=== PATIENT | male | born 1960 | race Caucasian/White ===

== ENCOUNTER 2022-05-27 23:45 | Outpatient (CLI) | payer BC, SELFPAY | END 2022-05-27 23:46 | disposition home or self-care (01) | LOC: AMB 06-04 19:40 | PROVIDERS: Visit Provider Emergency Medicine Emergency Medical Services | DX: R53.1 Weakness (principal); I49.9 Cardiac arrhythmia, unspecified; R42 Dizziness and giddiness; Z20.822 Contact with and (suspected) exposure to COVID-19 | CPT/HCPCS: A0425; A0427 ==

== ENCOUNTER 2022-05-28 00:20 | Emergency (ER) | payer BC, SELFPAY ==
[2022-05-28] VITALS (22 sets, daily range): BP systolic 46–138; BP diastolic 27–102; PULSE 0–133; RESP 0–22; TEMP 36.1; O2SAT 91–97
[2022-05-28] MEDS: 0.9 % SODIUM CHLORIDE 1000 ml 1,000 ML IV (00:35)
--- NOTE | 2022-05-28 00:35 | ED.GENADULT ---
HPI - General Adult General Stated complaint: Heart Problem, Cov+ Time Seen by Provider: 05/28/22 00:33 History of Present Illness HPI narrative: This 61-year-old male comes in by ambulance because generalized malaise, lightheadedness, and near-syncope that occurred is prior to arrival. He does have a cardiac history and has a defibrillator. He has had ventricular tachycardia in the past. He states that his defibrillator did not discharge. He states that he was out for his normal walk in the evening. He walks a mi every day and tolerated this well. After coming in he felt generalized malaise with diaphoresis. He laid for a couple hours hoping to feel better. His called the ambulance who arrived and noted an initial blood pressure with a systolic value at 65. He did receive 500 mL of normal saline EN route here and his blood pressure is improved to a systolic value of 95 on arrival. The patient denies ever having any chest pain. He states that this kind of thing happen once before where he received IV fluids and was observed overnight and sent home as he improved. He does state that he feels behind on fluids. He received 325 mg of aspirin and route here. He states that he took his medicines today which include amiodarone, propranolol, lisinopril, and other medications. He is positive for COVID with a positive test result about a week ago. Related Data Allergies Allergy/AdvReac Type Severity Reaction Status Date / Time No Known Drug Allergies Allergy Verified 05/28/22 00:52 Review of Systems Status of ROS: Reports: 10 or more systems reviewed and unremarkable except as noted in History and below Narrative: Constitutional: No fevers, no weight gain or loss. Eyes: No discharge. No vision changes. HENT: No congestion, no sore throat, no ear pain. Cardiovascular: No chest pain, no palpitations. Tachycardia. Diaphoresis. Respiratory: No shortness of breath, no wheezes, no cough. Gastrointestinal: No abdominal pain, no vomiting, no diarrhea. Genitourinary: No dysuria, no hematuria. Musculoskeletal: Normal range of motion. Skin: No rashes, no pruritis. Neurological: No weakness, sensory change, speech change. Lightheadedness prior to arrival here. Endo/Heme/Allergies: No bruising or bleeding. No polydipsia. Pysch: no suicidality, no anxiety, no insomnia. All other systems reviewed and are negative. [facility] Medical History (Updated 05/28/22 @ 01:50 by Roscoe Hatch MD) Adenomatous colon polyp Cyst of kidney, acquired Essential (primary) hypertension Mass in neck Nonischemic cardiomyopathy Pre-syncope Presence of automatic (implantable) cardiac defibrillator Syncope and collapse Ventricular tachycardia (paroxysmal) Exam Narrative: Exam Narrative: Constitutional: Well-developed, well-nourished, no acute distress. HEENT: Normocephalic, atraumatic. Neck: Normal range of motion. Nontender. Supple. Heart: Regular. No murmurs. Tachycardia, rate around 125 beats per minute. Intact distal pulses. Lungs: Clear to auscultation. No chest discomfort. No wheezes, rhonchi, or rales. Abdomen: Normal bowel sounds. Nontender. No rebound tenderness. Genitalia: Deferred. Back: No midline tenderness. Normal range of motion. Extremities: Normal range of motion. No injury. No pedal edema. Skin: Intact. No rash. Warm. No erythema or pallor. Neurologic: No altered sensation. No weakness. Alert and oriented. Psychiatric: No suicidality. No anxiety or depression. No insomnia. Nursing notes and vitals signs are reviewed. Const: Vital Signs, click to edit/add: Vital Signs - 24 hr 05/28/22 00:22 Temperature 97.0 F L Pulse Rate [Left P ulse Oximeter] 124 H Respiratory Rate 20 Blood Pressure [Le ft Upper Arm] 93/83 Pulse Oximetry 95 Oxygen Delivery Me thod Room Air Course Vital Signs Vital signs: Initial Vital Signs Temperature 97.0 F L 05/28/22 00:22 Temperature Source Temporal Artery Scan 05/28/22 00:22 Pulse Rate 124 H 05/28/22 00:22 Pulse Rhythm 05/28/22 00:22 Respiratory Rate 20 05/28/22 00:22 Blood Pressure 93/83 05/28/22 00:22 Blood Pressure Mean 86 05/28/22 00:22 Blood Pressure Position Semi-Fowlers 05/28/22 00:22 Pulse Oximetry 95 05/28/22 00:22 Oxygen Delivery Method 05/28/22 00:22 Vital Signs Temperature 97.0 F L 05/28/22 00:22 Pulse Rate 124 H 05/28/22 00:22 Respiratory Rate 20 05/28/22 00:22 Blood Pressure 93/83 05/28/22 00:22 Pulse Oximetry 95 05/28/22 00:22 Oxygen Delivery Method 05/28/22 00:22 Temperature 97.0 F L 05/28/22 00:22 Pulse Rate 124 H 05/28/22 00:22 Respiratory Rate 20 05/28/22 00:22 Blood Pressure 93/83 05/28/22 00:22 Pulse Oximetry 95 05/28/22 00:22 Oxygen Delivery Method 05/28/22 00:22 Medical Decision Making MDM Narrative Medical decision making narrative: This patient comes in with diaphoresis and some lightheadedness. He arrives with wide complex tachycardia and a rate of 125 beats per minute. This was initially a stable tachycardia. His blood pressures however are low. He did receive a L of normal saline after arrival here in addition to half a L given by ambulance. His pressures improved at 104 systolic but soon after this he became diaphoretic and blood pressure dropped to around 50. This was during a time when I was getting ready to arrange for synchronized cardioversion. He went unconscious when a nurse was in the room so a code blue was called. Chest compressions were started immediately. He had pads in place and rather quickly we were able to analyze the rhythm and he received defibrillation at 120 joules. Within less than a minute after this he resumed normal consciousness. His heart rate improved to normal sinus rhythm which is paced at 88 beats per minute. His blood pressure improved to a systolic value of 138. His troponin returns at 0. Other lab results also returned with reassuring findings. His calcium is a bit low. I spoke with manager nc on-call at [facility] in [place], Dr. Montes, agrees to his transfer there to the cardiac ICU. He stated that there was no need to administer any further medications at this time. Lab Data Labs: Lab Results 05/28/22 05/28/22 05/28/22 Range/Units 00:35 00:35 00:35 WBC 6.55 (4.50-11.00) K/uL RBC 3.97 L (4.30-5.90) m/uL Hgb 12.7 L (13.5-17.5) gm/dL Hct 37.5 (37.0-53.0) % MCV 95 (80-100) fL MCH 32 (26-34) pg MCHC 34 (32-36) gm/dL RDW Coeff of Linda 12.3 (11.5-15.5) % Plt Count 261 (140-440) K/uL Neut % (Auto) 62.3 (42.0-72.0) % Lymph % (Auto) 21.2 (20-44) % [place] % (Auto) 10.4 (0.0-11.0) % Eos % (Auto) 5.3 (0.0-7.0) % Baso % (Auto) 0.3 (0.0-3.0) % Neut # (Auto) 4.08 (1.7-7.0) K/uL Lymph # (Auto) 1.39 (0.90-2.90) K/uL [place] # (Auto) 0.70 (0.00-0.90) K/UL Eos # (Auto) 0.35 (0.00-0.50) K/uL Baso # (Auto) 0.02 (0.00-0.30) K/uL Abs Immat Gran (auto) 0.03 (0.00-0.30) K/uL INR 1.04 (0.91-1.10) Sodium 137 (135-149) mmol/L Potassium 4.7 (3.6-5.1) mmol/L Chloride 111 (96-114) mmol/L Carbon Dioxide 22 (20-32) mmol/L BUN 18 (7-30) mg/dL Creatinine 1.1 (0.5-1.5) mg/dL Estimated GFR 76 ml/min Glucose 128 H (60-115) mg/dL Calcium 6.9 L (8.4-10.6) mg/dL Magnesium 1.7 (1.5-2.6) mg/dL Troponin I < 0.01 L (0.01-0.04) ng/mL POC Troponin I (0.01-0.04) ng/ml 05/28/22 Range/Units 00:35 WBC (4.50-11.00) K/uL RBC (4.30-5.90) m/uL Hgb (13.5-17.5) gm/dL Hct (37.0-53.0) % MCV (80-100) fL MCH (26-34) pg MCHC (32-36) gm/dL RDW Coeff of Linda (11.5-15.5) % Plt Count (140-440) K/uL Neut % (Auto) (42.0-72.0) % Lymph % (Auto) (20-44) % [place] % (Auto) (0.0-11.0) % Eos % (Auto) (0.0-7.0) % Baso % (Auto) (0.0-3.0) % Neut # (Auto) (1.7-7.0) K/uL Lymph # (Auto) (0.90-2.90) K/uL [place] # (Auto) (0.00-0.90) K/UL Eos # (Auto) (0.00-0.50) K/uL Baso # (Auto) (0.00-0.30) K/uL Abs Immat Gran (auto) (0.00-0.30) K/uL INR (0.91-1.10) Sodium (135-149) mmol/L Potassium (3.6-5.1) mmol/L Chloride (96-114) mmol/L Carbon Dioxide (20-32) mmol/L BUN (7-30) mg/dL Creatinine (0.5-1.5) mg/dL Estimated GFR ml/min Glucose (60-115) mg/dL Calcium (8.4-10.6) mg/dL Magnesium (1.5-2.6) mg/dL Troponin I (0.01-0.04) ng/mL POC Troponin I 0.00 L (0.01-0.04) ng/ml Imaging Data Chest x-ray: Radiologist's impression: Small lung volumes with moderate pulmonary vascular congestion noted. ECG Data Attestation: I personally reviewed and interpreted this ECG as follows: Interpretation: Wide complex tachycardia. Rate 125 beats per minute. Repeat EKG after defibrillation shows a dual paced rhythm with a rate of 88 beats per minute. There are no specific ST or T-wave abnormalities. Critical Care Time Critical Care Time Critical Care Time: Yes Attestation: The patient required my highest level preparedness to intervene emergently and I personally spent this critical care time directly and personally managing the patient. This critical care time included: Obtaining a history; Examining the patient; Pulse oximetry; Ordering and reviewing of studies; Arranging urgent treatment with development of a management plan; Evaluation of patients response to treatment; Frequent reassessment discussions with other providers. This critical care time was performed to assess and manage the high probability of imminent life-threatening deterioration that could result in multiorgan failure. It was exclusive of separate billable procedures and treating other patients and teaching time. Total Critical Care Time in Minutes: 45 Discharge Plan Discharge Clinical Impression: Cardiac arrest, Ventricular tachycardia Patient Disposition: [facility] Condition: Improved Follow Up/Referrals: Stepan Warren MD [Primary Care Provider] - Stand Alone Forms: [employer] Info Instructions
--- NOTE | 2022-05-28 00:36 | CRLHL7_ITS ---
For Patients: As a result of the Cures Act, medical imaging exams and procedure reports are released immediately into your electronic medical record. You may view this report before your referring provider. If you have questions, please contact your health care provider. INDICATION: Wide complex tachycardia TECHNIQUE: Chest radiograph 1 view on 2 films COMPARISON: 05/06/2020 FINDINGS: Mediastinum: The mediastinum is normal in appearance. The heart silhouette is normal in size and morphology. There is a left cardiac pacer present with leads in the right atrium and right ventricle. Lung: Small lung volumes with moderate pulmonary vascular congestion noted. No sign of pleural effusion seen. No pneumothorax is identified. Bone and Soft tissue: Unremarkable for age. IMPRESSION: 1. Small lung volumes with moderate pulmonary vascular congestion noted. Dictated by Krishna Starks MD @ 05/28/2022 12:50:54 AM Dictated by: Krishna Starks MD @ 05/28/2022 00:50:59 (Electronically Signed)
--- NOTE | 2022-05-28 00:41 | ED.NURSE ---
Radiology in for PCXR.
[2022-05-28 00:47] LABS: Basophils Absolute Auto 0.02 K/uL (0.00-0.30); Basophils Percent Auto 0.3 % (0.0-3.0); Eosinophils Absolute Auto 0.35 K/uL (0.00-0.50); Eosinophils Percent Auto 5.3 % (0.0-7.0); Hematocrit 37.5 % (37.0-53.0); Hemoglobin* 12.7 gm/dL (13.5-17.5); Immature Granulocytes Abs Auto 0.03 K/uL (0.00-0.30); Lymphocytes Absolute Auto 1.39 K/uL (0.90-2.90); Lymphocytes Percent Auto 21.2 % (20-44); Mean Corpuscular HGB Conc 34 gm/dL (32-36); Mean Corpuscular Hemoglobin 32 pg (26-34); Mean Corpuscular Volume 95 fL (80-100); Monocytes Percent Auto 10.4 % (0.0-11.0); Neutrophils Absolute Auto 4.08 K/uL (1.7-7.0); Neutrophils Percent Auto 62.3 % (42.0-72.0); Platelet Count* 261 K/uL (140-440); RDW Coefficient of Variation % 12.3 % (11.5-15.5); Red Blood Count 3.97 m/uL (4.30-5.90); White Blood Count* 6.55 K/uL (4.50-11.00)
[2022-05-28 00:52] LABS: Slide Review Reflex No
[2022-05-28 01:12] LABS: Chloride* 111 mmol/L (96-114); Potassium* 4.7 mmol/L (3.6-5.1); Sodium* 137 mmol/L (135-149)
[2022-05-28 01:15] LABS: Blood Urea Nitrogen* 18 mg/dL (7-30); Carbon Dioxide* 22 mmol/L (20-32); Creatinine* 1.1 mg/dL (0.5-1.5); Estimated Glomerular Filt Rate 76 ml/min; Glucose* 128 mg/dL (60-115)
[2022-05-28 01:16] LABS: Calcium* 6.9 mg/dL (8.4-10.6); Magnesium* 1.7 mg/dL (1.5-2.6)
[2022-05-28 01:17] LABS: INR 1.04 (0.91-1.10)
[2022-05-28 01:33] LABS: Troponin I* < 0.01 ng/mL (0.01-0.04)
--- NOTE | 2022-05-28 02:05 | ED.NURSE ---
Report to Angie Store Sales Consultant, who accepts transfer of patient care. Patient left department via EMS cot en route to [facility] Cardiac ICU. Attempted to call nurse report to [place], who states, they have our number and will call if there are any questions.
--- NOTE | 2022-05-28 02:18 | ED.NURSE ---
Report to Angie Transportation Technician, who accepts transfer of patient care. Patient left department via EMS cot en route to [facility] Cardiac ICU. Attempted to call nurse report to [place], who states, they have our number and will call if there are any questions.
--- NOTE | 2022-05-28 05:04 | ED.NURSE ---
0118 Blood pressure 53/35. This RN went to notify the MD, while JUAN To, at bedside to assess patient. Patient lost consciousness and Code Blue called via Code Blue Button. Code team in room within 30 seconds of Code Blue call. Patient confirmed pulseless and chest compressions started at a rate if 110 compressions per minute. ER staff begins mechanical suctioning of emesis in the airway. Patient previously placed on defib pads, which are connected to the zoll and rhythm interpreted as pulseless ventricular tachycardia. Patient defibrillated with unsynchronized shock at 120j at 0121:25. Chest compressions resumed. Airway is suctioned again during chest compressions. At 0122, patient is noted to have swallowing movements. Chest compressions stopped, central and distal pulses are intact and strong. Patient is alert and oriented to name, , and place. Monitor shows AV dual paced rhythm, rate of 70. Patient is informed of events during cardiac arrest. Patient complains of some chest discomfort following chest compressions. MD speaking to [facility] for transfer to Cardiac ICU, accepted by Dr. Montes. Patient and Dr. Sotelo speaking to on portable phone. Patient is talkative in room.
[2022-05-28 09:24] LABS: D Dimer Quantitative* 0.28 ug/ml (0.00-0.50)
--- NOTE | 2022-06-01 14:46 | ED.NURSE ---
Pt called requesting to speak with DR Rodriguez. Flat Lock Machine Operator instructed pt that Dr rodriguez was busy with a patient and was unable to take a phone call at the moment. Flat Lock Machine Operator asked if there was something that I could answer for him, he said was calling to thank dr rodriguez for his care and also had questions regarding the settings on his pace maker. Flat Lock Machine Operator instructed patient to direct pace maker setting questions and additional follow up questions to his primary care or rooter operator.
== END 2022-05-28 02:05 | disposition short-term general hospital (02) ==
PROVIDERS: Emergency Provider Emergency Medicine Emergency Medical Services
DX: I47.2 Ventricular tachycardia (principal); I46.9 Cardiac arrest, cause unspecified; Z95.810 Presence of automatic (implantable) cardiac defibrillator
CPT/HCPCS: 36415; 71045; 80048; 83735; 84484; 85025; 85379; 85610; 92950; 93005; 99285; 99291; J7030

== ENCOUNTER 2022-05-28 02:02 | Outpatient (CLI) | payer BC, SELFPAY | END 2022-05-28 02:03 | disposition home or self-care (01) | LOC: AMB 06-04 19:42 | PROVIDERS: Visit Provider Emergency Medicine Emergency Medical Services | DX: I46.9 Cardiac arrest, cause unspecified (principal); I47.2 Ventricular tachycardia; R53.81 Other malaise; R42 Dizziness and giddiness; R55 Syncope and collapse | CPT/HCPCS: A0425; A0427 ==

== ENCOUNTER 2022-08-31 14:18 | Outpatient (CLI) | payer BC, SELFPAY | END 2022-08-31 14:19 | disposition home or self-care (01) | LOC: AMB 09-23 16:13 | PROVIDERS: Visit Provider Emergency Medicine | DX: R20.0 Anesthesia of skin (principal) | CPT/HCPCS: A0998 ==

== ENCOUNTER 2022-11-02 16:21 | Outpatient (CLI) | payer BC, SELFPAY | END 2022-11-02 16:22 | disposition home or self-care (01) | LOC: AMB 11-05 22:34 | PROVIDERS: Visit Provider Student in an Organized Health Care Education/Training Program | DX: I49.9 Cardiac arrhythmia, unspecified (principal) | CPT/HCPCS: A0425; A0427 ==

== ENCOUNTER 2022-11-02 16:53 | Emergency (ER) | payer BC, SELFPAY ==
[2022-11-02] VITALS (38 sets, daily range): BP systolic 88–120; BP diastolic 59–96; PULSE 68–120; RESP 9–21; TEMP 37.2; O2SAT 97–100; BMI 23.5
--- NOTE | 2022-11-02 17:09 | CRLHL7_ITS ---
For Patients: As a result of the Cures Act, medical imaging exams and procedure reports are released immediately into your electronic medical record. You may view this report before your referring provider. If you have questions, please contact your health care provider. INDICATION: V-tach. Chest pain.. TECHNIQUE: Chest 1 view. COMPARISON: May 28, 2022. FINDINGS: Cardiovascular and mediastinum: Cardiomediastinal silhouette is borderline enlarged, similar to prior. Left chest wall AICD with leads extending to the right atrium and ventricle. Lungs and pleural spaces: Lungs are clear. No evidence of pleural effusion. No pneumothorax identified. Bones and soft tissues: Unremarkable. IMPRESSION: No acute cardiopulmonary process identified. No significant interval change. Dictated by Andrew Oviedo MD @ 11/02/2022 5:39:47 PM (Electronically Signed)
--- NOTE | 2022-11-02 17:17 | ED_ITS ---
HPI - General Adult General Time Seen by Provider: 17:18 <Jose Guadalupe Whitley MD - Last Filed: 11/03/22 10:35> Date Seen: 11/02/22 <Jose Guadalupe Whitley MD - Last Filed: 11/03/22 10:35> Chief complaint: Arrhythmia/Palpitations <Jose Guadalupe Whitley MD - Last Filed: 11/03/22 10:35> Stated complaint: Tachycardia <Jose Guadalupe Whitley MD - Last Filed: 11/03/22 10:35> Time Seen by Provider: 11/02/22 16:57 <Jose Guadalupe Whitley MD - Last Filed: 11/03/22 10:35> History of Present Illness HPI narrative: Mendez is a 62-year-old male past medical history includes defibrillator/pacemaker currently on amiodarone and mexiletine, 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 Patient states just prior to his arrival he felt some pounding in his chest, this occurred after he went for his usual walk, denies any lightheadedness or dizziness or syncopal episodes, min imal chest discomfort. No real shortness of breath. Checked his apple watch was increased to 120, he states that his pacemaker set at 70, his defibrillator is set at 120., he has had this since 2006, he had the battery changed 2 months ago. Patient denies any fevers, chills or any other illness. Patient states that he has been shocked by his defibrillator about 10 times in the past. Patient denies any pain at this time. <Jose Guadalupe Whitley MD - Last Filed: 11/03/22 10:35> Related Data Home medications: Home Medications Medication Instructions Recorded Confirmed amiodarone 200 mg tablet 400 mg PO Q12H 05/28/22 11/02/22 levothyroxine 100 mcg tablet 100 mcg PO QAM 05/28/22 11/02/22 lisinopril 5 mg tablet 40 mg PO DAILY 05/28/22 11/02/22 mexiletine 200 mg capsule mg 05/28/22 potassium chloride 20 mEq meq PO 05/28/22 tablet,extended release(part/cryst) propranolol 160 mg capsule,24 mg PO 05/28/22 hr,extended release sildenafil 25 mg tablet mg 05/28/22 spironolactone 25 mg tablet mg 05/28/22 carvedilol 6.25 mg tablet mg 11/02/22 cholecalciferol (vitamin D3) 1,250 11/02/22 mcg (50,000 unit) capsule <Jose Guadalupe Whitley MD - Last Filed: 11/03/22 10:35> Allergies/adverse reactions: Allergies Allergy/AdvReac Type Severity Reaction Status Date / Time No Known Drug Allergies Allergy Verified 05/28/22 00:52 <Jose Guadalupe Whitley MD - Last Filed: 11/03/22 10:35> Review of Systems Status of ROS: Reports: 10 or more systems reviewed and unremarkable except as noted in History and below <Jose Guadalupe Whitley MD - Last Filed: 11/03/22 10:35> [facility] Medical History: Medical History (Updated 11/02/22 @ 18:03 by Jose Guadalupe Whitley MD) Adenomatous colon polyp Cyst of kidney, acquired Essential (primary) hypertension Mass in neck Nonischemic cardiomyopathy Pre-syncope Presence of automatic (implantable) cardiac defibrillator Syncope and collapse Ventricular tachycardia (paroxysmal) <Jose Guadalupe Whitley MD - Last Filed: 11/03/22 10:35> Social History: Social History Smoking Status: Never smoker How often do you have a drink containing alcohol: monthly or less AUDIT-C Alcohol total score: 1 Non-prescribed substance use: denies use service: No <Jose Guadalupe Whitley MD - Last Filed: 11/03/22 10:35> Exam Narrative: Exam Narrative: General: No obvious distress laying comfortably HEENT: Oropharynx clear and moist, Neck: Supple full range of motion Heart: Tachycardia Lungs: Clear to auscultation bilaterally Abdomen: Soft, nontender Muscle skeletal: No lower extremity edema Neuro: Alert awake and oriented x3 <Jose Guadalupe Whitley MD - Last Filed: 11/03/22 10:35> Const: Vital Signs, click to edit/add: Vital Signs - 24 hr 11/02/22 17:02 11/02/22 17:12 11/02/22 17:13 Temperature 98.9 F Pulse Rate 119 H 119 H Pulse Rate [Pulse Oximeter] 118 H Respiratory Rate 18 Blood Pressure 115/94 H Blood Pressure [Le ft Upper Arm] 120/91 H Pulse Oximetry 98 99 99 Oxygen Delivery Me thod Room Air Oxygen Flow Rate 11/02/22 17:15 11/02/22 17:16 11/02/22 17:20 Temperature Pulse Rate 118 H 120 H 119 H Pulse Rate [Pulse Oximeter] Respiratory Rate Blood Pressure 113/96 H Blood Pressure [Le ft Upper Arm] Pulse Oximetry 100 99 99 Oxygen Delivery Me thod Oxygen Flow Rate 11/02/22 17:25 11/02/22 17:30 11/02/22 17:31 Temperature Pulse Rate 116 H 118 H 118 H Pulse Rate [Pulse Oximeter] Respiratory Rate Blood Pressure 106/85 Blood Pressure [Le ft Upper Arm] Pulse Oximetry 98 99 98 Oxygen Delivery Me thod Oxygen Flow Rate 11/02/22 17:35 11/02/22 17:40 11/02/22 17:45 Temperature Pulse Rate 118 H 118 H 120 H Pulse Rate [Pulse Oximeter] Respiratory Rate Blood Pressure Blood Pressure [Le ft Upper Arm] Pulse Oximetry 99 99 99 Oxygen Delivery Me thod Oxygen Flow Rate 11/02/22 17:46 11/02/22 17:50 11/02/22 17:55 Temperature Pulse Rate 119 H 119 H Pulse Rate [Pulse Oximeter] Respiratory Rate 12 20 Blood Pressure 111/89 Blood Pressure [Le ft Upper Arm] Pulse Oximetry 99 100 Oxygen Delivery Me thod Oxygen Flow Rate 11/02/22 18:00 11/02/22 18:01 11/02/22 18:05 Temperature Pulse Rate 120 H Pulse Rate [Pulse Oximeter] Respiratory Rate 11 L 16 15 Blood Pressure 110/94 H Blood Pressure [Le ft Upper Arm] Pulse Oximetry 100 Oxygen Delivery Me thod Oxygen Flow Rate 11/02/22 18:10 11/02/22 18:11 11/02/22 18:15 Temperature Pulse Rate 75 68 70 Pulse Rate [Pulse Oximeter] Respiratory Rate 9 L 11 L 21 Blood Pressure 106/81 Blood Pressure [Le ft Upper Arm] Pulse Oximetry 97 98 100 Oxygen Delivery Me thod Oxygen Flow Rate 11/02/22 18:19 11/02/22 18:20 11/02/22 18:21 Temperature Pulse Rate 70 70 70 Pulse Rate [Pulse Oximeter] Respiratory Rate 13 13 17 Blood Pressure 104/79 88/59 L Blood Pressure [Le ft Upper Arm] Pulse Oximetry 100 100 100 Oxygen Delivery Me thod Oxygen Flow Rate 11/02/22 18:25 11/02/22 18:26 11/02/22 18:30 Temperature Pulse Rate 70 70 70 Pulse Rate [Pulse Oximeter] Respiratory Rate 13 15 14 Blood Pressure 108/76 Blood Pressure [Le ft Upper Arm] Pulse Oximetry 100 100 100 Oxygen Delivery Me thod Oxygen Flow Rate 11/02/22 18:31 11/02/22 18:35 11/02/22 18:36 Temperature Pulse Rate 70 70 69 Pulse Rate [Pulse Oximeter] Respiratory Rate 20 13 12 Blood Pressure 112/79 97/71 Blood Pressure [Le ft Upper Arm] Pulse Oximetry 100 100 100 Oxygen Delivery Me thod Oxygen Flow Rate 11/02/22 18:40 11/02/22 18:41 11/02/22 18:58 Temperature Pulse Rate 71 70 71 Pulse Rate [Pulse Oximeter] Respiratory Rate 11 L 15 Blood Pressure 100/70 Blood Pressure [Le ft Upper Arm] Pulse Oximetry 100 100 99 Oxygen Delivery Me thod Oxygen Flow Rate 11/02/22 19:00 11/02/22 19:01 11/02/22 19:05 Temperature Pulse Rate 70 70 70 Pulse Rate [Pulse Oximeter] Respiratory Rate Blood Pressure 119/82 Blood Pressure [Le ft Upper Arm] Pulse Oximetry 100 99 100 Oxygen Delivery Me thod Oxygen Flow Rate 11/02/22 19:10 11/02/22 19:35 Temperature Pulse Rate 70 Pulse Rate [Pulse Oximeter] Respiratory Rate Blood Pressure Blood Pressure [Le ft Upper Arm] Pulse Oximetry 100 99 Oxygen Delivery Me thod Nasal Cannula Oxygen Flow Rate 4 <Jose Guadalupe Whitley MD - Last Filed: 11/03/22 10:35> Vital Signs, click to edit/add: Vital Signs - 24 hr 11/02/22 17:02 11/02/22 17:12 11/02/22 17:13 Temperature 98.9 F Pulse Rate 119 H 119 H Pulse Rate [Pulse Oximeter] 118 H Respiratory Rate 18 Blood Pressure 115/94 H Blood Pressure [Le ft Upper Arm] 120/91 H Pulse Oximetry 98 99 99 Oxygen Delivery Me thod Room Air Oxygen Flow Rate 11/02/22 17:15 11/02/22 17:16 11/02/22 17:20 Temperature Pulse Rate 118 H 120 H 119 H Pulse Rate [Pulse Oximeter] Respiratory Rate Blood Pressure 113/96 H Blood Pressure [Le ft Upper Arm] Pulse Oximetry 100 99 99 Oxygen Delivery Me thod Oxygen Flow Rate 11/02/22 17:25 11/02/22 17:30 11/02/22 17:31 Temperature Pulse Rate 116 H 118 H 118 H Pulse Rate [Pulse Oximeter] Respiratory Rate Blood Pressure 106/85 Blood Pressure [Le ft Upper Arm] Pulse Oximetry 98 99 98 Oxygen Delivery Me thod Oxygen Flow Rate 11/02/22 17:35 11/02/22 17:40 11/02/22 17:45 Temperature Pulse Rate 118 H 118 H 120 H Pulse Rate [Pulse Oximeter] Respiratory Rate Blood Pressure Blood Pressure [Le ft Upper Arm] Pulse Oximetry 99 99 99 Oxygen Delivery Me thod Oxygen Flow Rate 11/02/22 17:46 11/02/22 17:50 11/02/22 17:55 Temperature Pulse Rate 119 H 119 H Pulse Rate [Pulse Oximeter] Respiratory Rate 12 20 Blood Pressure 111/89 Blood Pressure [Le ft Upper Arm] Pulse Oximetry 99 100 Oxygen Delivery Me thod Oxygen Flow Rate 11/02/22 18:00 11/02/22 18:01 11/02/22 18:05 Temperature Pulse Rate 120 H Pulse Rate [Pulse Oximeter] Respiratory Rate 11 L 16 15 Blood Pressure 110/94 H Blood Pressure [Le ft Upper Arm] Pulse Oximetry 100 Oxygen Delivery Me thod Oxygen Flow Rate 11/02/22 18:10 11/02/22 18:11 11/02/22 18:15 Temperature Pulse Rate 75 68 70 Pulse Rate [Pulse Oximeter] Respiratory Rate 9 L 11 L 21 Blood Pressure 106/81 Blood Pressure [Le ft Upper Arm] Pulse Oximetry 97 98 100 Oxygen Delivery Me thod Oxygen Flow Rate 11/02/22 18:19 11/02/22 18:20 11/02/22 18:21 Temperature Pulse Rate 70 70 70 Pulse Rate [Pulse Oximeter] Respiratory Rate 13 13 17 Blood Pressure 104/79 88/59 L Blood Pressure [Le ft Upper Arm] Pulse Oximetry 100 100 100 Oxygen Delivery Me thod Oxygen Flow Rate 11/02/22 18:25 11/02/22 18:26 11/02/22 18:30 Temperature Pulse Rate 70 70 70 Pulse Rate [Pulse Oximeter] Respiratory Rate 13 15 14 Blood Pressure 108/76 Blood Pressure [Le ft Upper Arm] Pulse Oximetry 100 100 100 Oxygen Delivery Me thod Oxygen Flow Rate 11/02/22 18:31 11/02/22 18:35 11/02/22 18:36 Temperature Pulse Rate 70 70 69 Pulse Rate [Pulse Oximeter] Respiratory Rate 20 13 12 Blood Pressure 112/79 97/71 Blood Pressure [Le ft Upper Arm] Pulse Oximetry 100 100 100 Oxygen Delivery Me thod Oxygen Flow Rate 11/02/22 18:40 11/02/22 18:41 11/02/22 18:58 Temperature Pulse Rate 71 70 71 Pulse Rate [Pulse Oximeter] Respiratory Rate 11 L 15 Blood Pressure 100/70 Blood Pressure [Le ft Upper Arm] Pulse Oximetry 100 100 99 Oxygen Delivery Me thod Oxygen Flow Rate 11/02/22 19:00 11/02/22 19:01 11/02/22 19:05 Temperature Pulse Rate 70 70 70 Pulse Rate [Pulse Oximeter] Respiratory Rate Blood Pressure 119/82 Blood Pressure [Le ft Upper Arm] Pulse Oximetry 100 99 100 Oxygen Delivery Me thod Oxygen Flow Rate 11/02/22 19:10 11/02/22 19:35 Temperature Pulse Rate 70 Pulse Rate [Pulse Oximeter] Respiratory Rate Blood Pressure Blood Pressure [Le ft Upper Arm] Pulse Oximetry 100 99 Oxygen Delivery Me thod Nasal Cannula Oxygen Flow Rate 4 <Roscoe Hatch MD - Last Filed: 11/02/22 18:42> Course Course Hospital Course: 5:00 PM: AIDET performed. Vitals are stable at this time, workup will include EKG, troponin,XR chest portable one view, CBC, lactate and CMP. Will reach out to Cardiology [facility], plan to fax EKG to the CICU. Patient is mentating well. EKG showed a wide QRS complex ventricular tachycardia, bpm of 120, left axis deviation and nonspecific intraventricular block which is seen on previous. 5:30 PM: Spoke with Dr. Barnett cardiology Differential diagnosis include but not limited to ventricular fibrillation, ventricular tachycardia, SVT, atrial fibrillation, complete heart block, bradycardia, CAD/PR/heart failure as well as other etiologies. <Jose Guadalupe Whitley MD - Last Filed: 11/03/22 10:35> Reevaluation(s) Reevaluation #1: Spoke with Dr. Toribio mitchell Cardiology, his recommendations were for synchronized cardioversion then transfer to [facility], this was discussed with patient and and and they were in agreement. Patient has signed informed consent prior to synchronize cardioversion. Troponin was negative, CBC and metabolic panel minimal change from previous, XR chest portable one view showed no acute cardiopulmonary process. <Jose Guadalupe Whitley MD - Last Filed: 11/03/22 10:35> Time: 18:01 <Jose Guadalupe Whitley MD - Last Filed: 11/03/22 10:35> Reevaluation #2: Synchronized cardioversion performed, post EKG showed an atrial paced rhythm with occasional PVCs, bpm of 73, nonspecific intraventricular block seen on previous, blood pressure has been stable, did call [facility] they will call when bed is available, patient is feeling better after above care given. Please see Dr. Hatch's note for sedation. <Jose Guadalupe Whitley MD - Last Filed: 11/03/22 10:35> Time: 18:49 <Jose Guadalupe Whitley MD - Last Filed: 11/03/22 10:35> Reevaluation #3: Transport is here for the patient, he is feeling well, vitals have been stable, patient to be transferred via ground ambulance to [facility]. <Jose Guadalupe Whitley MD - Last Filed: 11/03/22 10:35> Time: 19:00 <Jose Guadalupe Whitley MD - Last Filed: 11/03/22 10:35> Vital Signs Vital signs: Initial Vital Signs Temperature 98.9 F 11/02/22 17:02 Temperature Source Temporal Artery Scan 11/02/22 17:02 Pulse Rate 118 H 11/02/22 17:02 Respiratory Rate 18 11/02/22 17:02 Blood Pressure 120/91 H 11/02/22 17:02 Blood Pressure Mean 100 11/02/22 17:02 Blood Pressure Position Supine 11/02/22 17:02 Pulse Oximetry 98 11/02/22 17:02 Oxygen Delivery Method 11/02/22 17:02 Vital Signs Temperature 98.9 F 11/02/22 17:02 Pulse Rate 118 H 11/02/22 17:02 Respiratory Rate 18 11/02/22 17:02 Blood Pressure 120/91 H 11/02/22 17:02 Pulse Oximetry 98 11/02/22 17:02 Oxygen Delivery Method 11/02/22 17:02 Temperature 98.9 F 11/02/22 17:02 Pulse Rate 70 11/02/22 19:10 Respiratory Rate 15 11/02/22 18:41 Blood Pressure 119/82 11/02/22 19:01 Pulse Oximetry 99 11/02/22 19:35 Oxygen Delivery Method 11/02/22 19:35 Oxygen Flow Rate 4 11/02/22 19:35 <Jose Guadalupe Whitley MD - Last Filed: 11/03/22 10:35> Initial Vital Signs Temperature 98.9 F 11/02/22 17:02 Temperature Source Temporal Artery Scan 11/02/22 17:02 Pulse Rate 118 H 11/02/22 17:02 Respiratory Rate 18 11/02/22 17:02 Blood Pressure 120/91 H 11/02/22 17:02 Blood Pressure Mean 100 11/02/22 17:02 Blood Pressure Position Supine 11/02/22 17:02 Pulse Oximetry 98 11/02/22 17:02 Oxygen Delivery Method 11/02/22 17:02 Vital Signs Temperature 98.9 F 11/02/22 17:02 Pulse Rate 118 H 11/02/22 17:02 Respiratory Rate 18 11/02/22 17:02 Blood Pressure 120/91 H 11/02/22 17:02 Pulse Oximetry 98 11/02/22 17:02 Oxygen Delivery Method 11/02/22 17:02 Temperature 98.9 F 11/02/22 17:02 Pulse Rate 70 11/02/22 19:10 Respiratory Rate 15 11/02/22 18:41 Blood Pressure 119/82 11/02/22 19:01 Pulse Oximetry 99 11/02/22 19:35 Oxygen Delivery Method 11/02/22 19:35 Oxygen Flow Rate 4 11/02/22 19:35 <Roscoe Hatch MD - Last Filed: 11/02/22 18:42> Medical Decision Making MDM Narrative Medical decision making narrative: I assisted Dr. Whitley in cardioversion of this patient who is in stable ventricular tachycardia. After informed consent was obtained I administered 80 mg of propofol intravenously. This brought sufficient sedation for synchronized cardioversion to occur at 120 joules of energy. This brought him back into normal rhythm which was atrial paced at 70 beats per minute. The patient recovered nicely without incident. I did perform a jaw thrust briefly to assist in helping him move air. He recovered normally without incident. Dr. Charlie Hatch <Roscoe Hatch MD - Last Filed: 11/02/22 18:42> Lab Data Labs: Lab Results 11/02/22 11/02/22 11/02/22 Range/Units 17:06 17:06 17:06 WBC 4.78 (4.50-11.00) K/uL RBC 4.30 (4.30-5.90) m/uL Hgb 13.9 (13.5-17.5) gm/dL Hct 40.4 (37.0-53.0) % MCV 94 (80-100) fL MCH 32 (26-34) pg MCHC 34 (32-36) gm/dL RDW Coeff of Linda 13.1 (11.5-15.5) % Plt Count 215 (140-440) K/uL Neut % (Auto) 56.3 (42.0-72.0) % Lymph % (Auto) 23.6 (20-44) % [place] % (Auto) 15.7 H (0.0-11.0) % Eos % (Auto) 3.6 (0.0-7.0) % Baso % (Auto) 0.2 (0.0-3.0) % Neut # (Auto) 2.69 (1.7-7.0) K/uL Lymph # (Auto) 1.13 (0.90-2.90) K/uL [place] # (Auto) 0.80 (0.00-0.90) K/UL Eos # (Auto) 0.17 (0.00-0.50) K/uL Baso # (Auto) 0.01 (0.00-0.30) K/uL Sodium 134 L (135-149) mmol/L Potassium 4.7 (3.6-5.1) mmol/L Chloride 102 (96-114) mmol/L Carbon Dioxide 26 (20-32) mmol/L BUN 16 (7-30) mg/dL Creatinine 1.0 (0.5-1.5) mg/dL Estimated Creat Clear 87.91 Estimated GFR 85 ml/min Glucose 128 H (60-115) mg/dL Lactate 1.0 (0.5-1.9) mmol/L Calcium 8.8 (8.4-10.6) mg/dL Total Bilirubin 0.5 (0.1-1.5) mg/dL AST 27 (12-35) U/L ALT 33 (4-50) U/L Alkaline Phosphatase 49 (40-150) U/L Troponin I < 0.01 L (0.01-0.04) ng/mL Total Protein 6.5 (6.0-8.3) g/dL Albumin 4.2 (3.3-5.0) g/dL <Jose Guadalupe Whitley MD - Last Filed: 11/03/22 10:35> Lab Results 11/02/22 11/02/22 11/02/22 Range/Units 17:06 17:06 17:06 WBC 4.78 (4.50-11.00) K/uL RBC 4.30 (4.30-5.90) m/uL Hgb 13.9 (13.5-17.5) gm/dL Hct 40.4 (37.0-53.0) % MCV 94 (80-100) fL MCH 32 (26-34) pg MCHC 34 (32-36) gm/dL RDW Coeff of Linda 13.1 (11.5-15.5) % Plt Count 215 (140-440) K/uL Neut % (Auto) 56.3 (42.0-72.0) % Lymph % (Auto) 23.6 (20-44) % [place] % (Auto) 15.7 H (0.0-11.0) % Eos % (Auto) 3.6 (0.0-7.0) % Baso % (Auto) 0.2 (0.0-3.0) % Neut # (Auto) 2.69 (1.7-7.0) K/uL Lymph # (Auto) 1.13 (0.90-2.90) K/uL [place] # (Auto) 0.80 (0.00-0.90) K/UL Eos # (Auto) 0.17 (0.00-0.50) K/uL Baso # (Auto) 0.01 (0.00-0.30) K/uL Sodium 134 L (135-149) mmol/L Potassium 4.7 (3.6-5.1) mmol/L Chloride 102 (96-114) mmol/L Carbon Dioxide 26 (20-32) mmol/L BUN 16 (7-30) mg/dL Creatinine 1.0 (0.5-1.5) mg/dL Estimated Creat Clear 87.91 Estimated GFR 85 ml/min Glucose 128 H (60-115) mg/dL Lactate 1.0 (0.5-1.9) mmol/L Calcium 8.8 (8.4-10.6) mg/dL Total Bilirubin 0.5 (0.1-1.5) mg/dL AST 27 (12-35) U/L ALT 33 (4-50) U/L Alkaline Phosphatase 49 (40-150) U/L Troponin I < 0.01 L (0.01-0.04) ng/mL Total Protein 6.5 (6.0-8.3) g/dL Albumin 4.2 (3.3-5.0) g/dL <Roscoe Hatch MD - Last Filed: 11/02/22 18:42> Critical Care Time Critical Care Time Critical Care Time: Yes Attestation: The patient required my highest level preparedness to intervene emergently and I personally spent this critical care time directly and personally managing the patient. This critical care time included: Obtaining a history; Examining the patient; Pulse oximetry; Ordering and reviewing of studies; Arranging urgent treatment with development of a management plan; Evaluation of patients response to treatment; Frequent reassessment discussions with other providers. This critical care time was performed to assess and manage the high probability of imminent life-threatening deterioration that could result in multiorgan failure. It was exclusive of separate billable procedures and treating other patients and teaching time. <Jose Guadalupe Whitley MD - Last Filed: 11/03/22 10:35> Total Critical Care Time in Minutes: 45 <Jose Guadalupe Whitley MD - Last Filed: 11/03/22 10:35> Discharge Plan Discharge Clinical Impression: Ventricular tachycardia <Jose Guadalupe Whitley MD - Last Filed: 11/03/22 10:35> Patient Disposition: [facility] <Jose Guadalupe Whitley MD - Last Filed: 11/03/22 10:35> Prescriptions: No Action amiodarone 200 mg tablet 400 mg PO Q12H Label Comments: TAKE ONE TABLET BY MOUTH TWICE A DAY levothyroxine 100 mcg tablet 100 mcg PO QAM Label Comments: TAKE ONE TABLET BY MOUTH EVERY MORNING BEFORE BREAKFAST lisinopril 5 mg tablet 40 mg PO DAILY Label Comments: TAKE ONE TABLET BY MOUTH TWICE A DAY propranolol 160 mg capsule,extended release 24 hr PO Hold Instructions: Doctor's Order Label Comments: TAKE ONE CAPSULE BY MOUTH EVERY 12 HOURS sildenafil 25 mg tablet Hold Instructions: Doctor's Order Label Comments: TAKE ONE TABLET BY MOUTH DAILY NEEDED FOR ERECTILE DYSFUNCTION spironolactone 25 mg tablet Label Comments: TAKE ONE TABLET BY MOUTH DAILY IN THE MORNING potassium chloride 20 mEq tablet,ER particles/crystals PO Label Comments: TAKE ONE TABLET BY MOUTH EVERY MORNING AND 2 TABLETS WITH EVENING MEAL mexiletine 200 mg capsule Label Comments: TAKE ONE CAPSULE BY MOUTH THREE TIMES DAILY carvedilol 6.25 mg tablet Label Comments: TAKE 1 AND 1/2 TABLETS (9.375MG) BY MOUTH TWICE A DAY WITH MEALS cholecalciferol (vitamin D3) 1,250 mcg (50,000 unit) capsule Label Comments: TAKE ONE CAPSULE BY MOUTH ONCE PER WEEK <Jose Guadalupe Whitley MD - Last Filed: 11/03/22 10:35> Stand Alone Forms: [facility] Info Instructions <Jose Guadalupe Whitley MD - Last Filed: 11/03/22 10:35>
[2022-11-02 17:25] LABS: Basophils Absolute Auto 0.01 K/uL (0.00-0.30); Basophils Percent Auto 0.2 % (0.0-3.0); Eosinophils Absolute Auto 0.17 K/uL (0.00-0.50); Eosinophils Percent Auto 3.6 % (0.0-7.0); Hematocrit 40.4 % (37.0-53.0); Hemoglobin* 13.9 gm/dL (13.5-17.5); Immature Granulocytes Abs Auto 0.03 K/uL (0.00-0.30); Immature Granulocytes Pct Auto 0.6 %; Lymphocytes Absolute Auto 1.13 K/uL (0.90-2.90); Lymphocytes Percent Auto 23.6 % (20-44); Mean Corpuscular HGB Conc 34 gm/dL (32-36); Mean Corpuscular Hemoglobin 32 pg (26-34); Mean Corpuscular Volume 94 fL (80-100); Monocytes Percent Auto 15.7 % (0.0-11.0); Neutrophils Absolute Auto 2.69 K/uL (1.7-7.0); Neutrophils Percent Auto 56.3 % (42.0-72.0); Platelet Count* 215 K/uL (140-440); RDW Coefficient of Variation % 13.1 % (11.5-15.5); White Blood Count* 4.78 K/uL (4.50-11.00)
[2022-11-02 17:30] LABS: Slide Review Reflex No
[2022-11-02 17:43] LABS: Albumin* 4.2 g/dL (3.3-5.0)
[2022-11-02 17:44] LABS: Chloride* 102 mmol/L (96-114); Potassium* 4.7 mmol/L (3.6-5.1); Sodium* 134 mmol/L (135-149)
[2022-11-02] MEDS: 0.9 % SODIUM CHLORIDE 1000 ml 1,000 ML IV (17:45)
[2022-11-02 17:46] LABS: Aspartate Amino Transferase* 27 U/L (12-35); Bilirubin Total* 0.5 mg/dL (0.1-1.5); Carbon Dioxide* 26 mmol/L (20-32); Est. Creatinine Clearance* 87.91; Estimated Glomerular Filt Rate 85 ml/min; Total Protein* 6.5 g/dL (6.0-8.3)
[2022-11-02 17:47] LABS: Alanine Aminotransferase* 33 U/L (4-50); Alkaline Phosphatase* 49 U/L (40-150); Blood Urea Nitrogen* 16 mg/dL (7-30); Calcium* 8.8 mg/dL (8.4-10.6); Glucose* 128 mg/dL (60-115)
[2022-11-02] MEDS: PROPOFOL 10 MG/ML INJ 80 MG IVP (18:06)
[2022-11-02 18:08] LABS: Troponin I* < 0.01 ng/mL (0.01-0.04)
--- NOTE | 2022-11-02 19:34 | ED.NURSE ---
report to [facility] at bedside, report to [facility] for transport.
--- NOTE | 2022-11-02 19:38 | ED.NURSE ---
MD rodriguez and jason at bedside for cardioversion, md rodriguez push propofol 80mg, pt tolerated cardioversion with no memory, ekg post given to .
== END 2022-11-02 19:45 | disposition short-term general hospital (02) ==
PROVIDERS: Emergency Provider Student in an Organized Health Care Education/Training Program
DX: I47.20 Ventricular tachycardia, unspecified (principal)
CPT/HCPCS: 36415; 71045; 80053; 83605; 84484; 85025; 92960; 93005; 99282; 99291; J2704; J7030

== ENCOUNTER 2022-11-02 19:25 | Outpatient (CLI) | payer BC, SELFPAY | END 2022-11-02 19:26 | disposition home or self-care (01) | LOC: AMB 11-05 22:38 | PROVIDERS: Visit Provider Student in an Organized Health Care Education/Training Program | DX: I49.9 Cardiac arrhythmia, unspecified (principal) | CPT/HCPCS: A0425; A0426; A0427 ==